=== PATIENT | male | born 1955 | race African-American/Black ===

== ENCOUNTER 2021-07-10 14:52 | Inpatient (IN) | payer OTHER ==
[2021-07-10 18:57] VITALS: BMI 21.6
[2021-07-10] MEDS ORDERED: METHOCARBAMOL 500 MG TABLET PO PRN (18:57)
[2021-07-10] MEDS ORDERED: MAG HYDROX/AL HYDROX/SIMETH 30 ML UNIT-DOSE CUP PO PRN (18:57)
[2021-07-10] MEDS ORDERED: LORazepam 1 MG TABLET PO PRN (18:57)
[2021-07-10] MEDS ORDERED: IBUPROFEN 400 MG TABLET (FP) PO PRN (18:57)
[2021-07-10] MEDS ORDERED: ONDANSETRON *ODT* 4 MG TABLET SL PRN (18:57)
[2021-07-10] MEDS ORDERED: ACETAMINOPHEN 325 MG TABLET (FP) PO PRN ×2 (18:57)
[2021-07-10] MEDS ORDERED: MAGNESIUM HYDROX 2400MG/30ML ORAL SUSPENSION 30 ML CUP PO PRN (18:57)
[2021-07-10] MEDS ORDERED: BISMUTH SUBSALICYLATE 524 MG/30 ML PO PRN (18:57)
[2021-07-10] MEDS ORDERED: MENTHOL/PHENOL 1 EACH UD MM PRN (18:57)
[2021-07-10] MEDS ORDERED: MAGNESIUM CITRATE 300 ML BOTTLE PO PRN (18:57)
[2021-07-10] MEDS: LORazepam 2 MG TABLET PO SCH (23:22)
[2021-07-10] MEDS: MELATONIN 5 MG TABLETS PO SCH (23:22)
[2021-07-10] MEDS: THIAMINE HCL 100 MG TABLET (FP) PO SCH (23:23)
[2021-07-10] MEDS: hydrOXYzine PAMOATE 25 MG CAPSULE (FP) PO SCH (23:23)
[2021-07-11] MEDS: LORazepam 2 MG TABLET PO SCH ×4 (06:01→22:56)
[2021-07-11] MEDS: hydrOXYzine PAMOATE 25 MG CAPSULE (FP) PO SCH ×5 (06:01→22:56)
[2021-07-11 11:37] LABS: HEMATOCRIT 37.6 % (35.4-49); HEMOGLOBIN 12.7 GM/dL (11.7-16.9); MCH 34.2 pg (25.7-33.7); MCHC 33.9 g/dl (32.0-35.9); MEAN CELL VOLUME 100.9 fl (80-96); PLATELET COUNT 128 10^3/uL (134-434); RBC 3.72 M/mm3 (4.00-5.60); RDW 14.7 % (11.9-15.9)
[2021-07-11 11:47] LABS: ALBUMIN 3.6 g/dl (3.4-5.0); BLOOD UREA NITROGEN 11.1 mg/dL (7-18); CALCIUM 8.9 mg/dL (8.5-10.1)
[2021-07-11 11:48] LABS: CREATININE 0.8 mg/dL (0.55-1.3)
[2021-07-11 11:49] LABS: BILIRUBIN,TOTAL 2.2 mg/dL (0.2-1)
[2021-07-11 11:56] LABS: WHITE BLOOD COUNT 10.3 K/mm3 (4.0-10.0)
[2021-07-11] MEDS ORDERED: POTASSIUM CHLORIDE ORAL LIQUID 20 MEQ/15 ML PO ONE (13:45)
[2021-07-11] MEDS: POTASSIUM CHLORIDE ORAL LIQUID 20 MEQ/15 ML PO SCH (22:56)
[2021-07-11] MEDS: THIAMINE HCL 100 MG TABLET (FP) PO SCH (22:57)
[2021-07-11] MEDS: MELATONIN 5 MG TABLETS PO SCH (22:57)
[2021-07-12] MEDS: hydrOXYzine PAMOATE 25 MG CAPSULE (FP) PO SCH ×6 (06:54→22:16)
[2021-07-12] MEDS: LORazepam 1 MG TABLET PO SCH ×5 (06:54→22:15)
[2021-07-12 10:24] LABS: HEMATOCRIT 36.9 % (35.4-49); HEMOGLOBIN 12.5 GM/dL (11.7-16.9); MCH 34.1 pg (25.7-33.7); MCHC 33.9 g/dl (32.0-35.9); MEAN CELL VOLUME 100.8 fl (80-96); MEAN PLT VOLUME 7.5 fl (7.5-11.1); PLATELET COUNT 122 10^3/uL (134-434); RBC 3.66 M/mm3 (4.00-5.60); RDW 14.3 % (11.9-15.9); WHITE BLOOD COUNT 3.5 K/mm3 (4.0-10.0)
[2021-07-12 10:33] LABS: INR 0.98 (0.83-1.09)
[2021-07-12 10:37] LABS: ALBUMIN 3.2 g/dl (3.4-5.0); BLOOD UREA NITROGEN 10.8 mg/dL (7-18); CALCIUM 8.9 mg/dL (8.5-10.1)
[2021-07-12 10:41] LABS: CREATININE 0.7 mg/dL (0.55-1.3)
[2021-07-12 10:42] LABS: BILIRUBIN,TOTAL 1.4 mg/dL (0.2-1); TOT PROT 6.3 g/dl (6.4-8.2)
[2021-07-12] MEDS: POTASSIUM CHLORIDE ORAL LIQUID 20 MEQ/15 ML PO SCH ×2 (10:59→22:16)
[2021-07-12] MEDS ORDERED: METOPROLOL TARTRATE 50 MG TABLET (FP) PO ONE (21:55)
[2021-07-12] MEDS: MELATONIN 5 MG TABLETS PO SCH (22:16)
[2021-07-12] MEDS: THIAMINE HCL 100 MG TABLET (FP) PO SCH (22:16)
[2021-07-13] MEDS ORDERED: LORazepam 0.5 MG TABLET PO PRN
[2021-07-13] MEDS: LORazepam 0.5 MG TABLET PO SCH ×4 (06:35→22:25)
[2021-07-13] MEDS: hydrOXYzine PAMOATE 25 MG CAPSULE (FP) PO SCH ×5 (06:35→22:26)
[2021-07-13] MEDS ORDERED: HYDROCHLOROTHIAZIDE 25 MG TABLET (FP) PO SCH (10:00)
[2021-07-13] MEDS ORDERED: amLODIPine BESYLATE 5 MG TABLET (FP) PO SCH (10:00)
[2021-07-13] MEDS ORDERED: cloNIDine HCL 0.1 MG TABLET PO ONE (10:00)
[2021-07-13] MEDS: THIAMINE HCL 100 MG TABLET (FP) PO SCH (22:26)
[2021-07-13] MEDS: MELATONIN 5 MG TABLETS PO SCH (22:26)
[2021-07-14] MEDS ORDERED: LORazepam 0.5 MG TABLET PO ONE (05:00)
[2021-07-14] MEDS: hydrOXYzine PAMOATE 25 MG CAPSULE (FP) PO SCH (05:27)
[2021-07-14 06:51] VITALS: TEMP 98.6
[2021-07-14 08:56] VITALS: BP 117/84; PULSE 102
== END 2021-07-14 09:51 | disposition home or self-care (01) | DRG 897 ==
LOC: YASAS 14:52 → Y3N 19:24
PROVIDERS: ADMIT Allergy & Immunology; ATTEND Allergy & Immunology
PROC: HZ2ZZZZ Detoxification Services for Substance Abuse Treatment (ICD-10-PCS; principal; 2021-07-10)
DX: F10.230 Alcohol dependence with withdrawal, uncomplicated (principal); I69.851 Hemiplegia and hemiparesis following other cerebrovascular disease affecting right dominant side; I10 Essential (primary) hypertension; Z87.891 Personal history of nicotine dependence; Z59.0 Homelessness
CPT/HCPCS: 36415; 80053; 85027; 85610; 86780; C9803; J0735; U0003; U0005